=== PATIENT | female | born 1990 ===

== ENCOUNTER 2016-10-22 15:20 | Emergency (ER) | payer OTHER ==
[2016-09-25 15:59] VITALS: BMI 35.2
--- NOTE | 2016-10-22 16:24 | OBDCSUM ---
Datetime: 10/22/2016 16:17 Discharged to, Provider: Home Follow up at, Provider: Primary OB Disch Instr Activity: Normal activity Disch Instr Diet: Regular Discharge Instructions, Provider: Routine instructions given Discharge Diagnosis, Provider: False Labor - Undelivered Discharge Time: 10/22/2016 16:30 Follow up in weeks, Provider: As scheduled tmrw Disch Referrals: None Contraception discussed, Prov: No
--- NOTE | 2016-10-25 16:34 | OBHP ---
Datetime: 10/22/2016 16:00 IP Adm Impression: Term, intrauterine IP Admit Plan: Observation/Evaluation Admit Comment, IP Provider: IUP at term c/o CTX since 4am...q5m...no SROM. +FM. No VB EDC Apr 3 PNC: Dr Daron Beck CP documented and chart rev'd A: IUP at term not in labor P: discussed with Dr APPIAH...will discharge home; follow up this week labor instructions pre-eclampsia warning Extremities - PN: Normal Abdomen - PN: Normal Back - PN: Normal Lungs - PN: Normal Heart - PN: Normal Thyroid - PN: Normal Neurologic - PN: Normal HEENT - PN: Normal General - PN: Normal Presentation-Admit: Vertex IP Fetus A Comments: Ceph on sonogram; NST reactive FHR - Baseline A Provider: 140 Membranes, Provider: Intact Comments, ACOG Physical Exam: ROS: General - no fatigue HEENT: No JEAN; no visual disturbance CV: no CP; no palpitations RESP: No Cough; no SOB GI: No N/V/D : No F/U/D MS: no joint pain Pool Provider: Negative IP Hx Assessment: The History has been Reviewed and is Current EGA AdmitDate IP: 38.1 IP Chief Complaint: Uterine contractions NICHD Variability Prov Fetus A: Moderate 6-25bpm NICHD Accel Fetus A IP Provider: 15X15 FHR Category Provider Fetus A: Category I NICHD Decel Fetus A IP Provider: None Dilatation, Provider: FT Effacement, Provider: 0 Station, Provider: high Genitourinary Exam: Normal DTRs - PN: Normal
== END 2016-10-22 16:30 | disposition home or self-care (01) ==
LOC: H.EROB2 15:20
DX: O47.1 False labor at or after 37 completed weeks of gestation (principal); Z3A.38 38 weeks gestation of pregnancy

== ENCOUNTER 2016-11-02 11:15 | Emergency (ER) | payer OTHER ==
--- NOTE | 2016-11-02 13:15 | OBHP ---
Datetime: 11/02/2016 13:11 IP Adm Impression: Term, intrauterine IP Admit Plan: Observation/Evaluation; Discharge home Admit Comment, IP Provider: Patient is a @ 39.5 wks with vaginal bleeding, +FM, some contrac tions, previous , no antepartum issues, no medical problems, no surgeries, no allergies, taking p renatal vitamins VE=1/thick/high [id number] mod an, +accels, no decels TOCO = ctxning q 8-10 mins A/P 1. Patient is a rule out labor, ruled out. On exam patient is 1cm, no vaginal bleeding noted 2. NST reactive and reassuring 3. Patient to be discharged home, labor precautions given Pelvic Type - PN: Adequate Extremities - PN: Normal Abdomen - PN: Normal Back - PN: Normal Breast - PN: Normal Lungs - PN: Normal Heart - PN: Normal Thyroid - PN: Normal Neurologic - PN: Normal HEENT - PN: Normal General - PN: Normal FHR - Baseline A Provider: 140 Contraction Comments Provider: q 8-10 EGA AdmitDate IP: 39.5 Vital Signs Provider: Reviewed; Within Normal Limits IP Chief Complaint: Uterine contractions NICHD Variability Prov Fetus A: Moderate 6-25bpm NICHD Accel Fetus A IP Provider: 15X15 Dilatation, Provider: 1 Effacement, Provider: thick Station, Provider: high Genitourinary Exam: Normal DTRs - PN: Normal
--- NOTE | 2016-11-02 13:17 | OBDCSUM ---
Datetime: 11/02/2016 13:14 Follow up at, Provider: OB Disch Instr Activity: Normal activity Disch Instr Diet: Regular Discharge Diagnosis, Provider: False Labor - Undelivered Follow up in weeks, Provider: this week Discharge Comment, Provider: Return to hospital if increased bleeding, ctxns, decreased FM
[2016-11-05] MEDS ORDERED: Oxytocin 30 units/LR 500ML 500 ML IV ONE (17:24)
== END 2016-11-02 23:00 | disposition home or self-care (01) ==
LOC: H.EROB2 11:15
DX: O47.1 False labor at or after 37 completed weeks of gestation (principal); Z3A.39 39 weeks gestation of pregnancy

== ENCOUNTER 2016-11-05 12:40 | Inpatient (IN) | payer OTHER ==
[2016-11-05 13:34] VITALS: BMI 34.4
[2016-11-05] MEDS: Lactated Ringer's 1,000 ML IV SCH ×4 (13:45→18:30)
[2016-11-05 14:06] LABS: HEMATOCRIT 32.7 % (34.0-47.0); MEAN CORPUSCULAR HEMOGLOBIN 24.5 pg (27.0-31.0); RED CELL DISTRIBUTION WIDTH 20.5 % (11.5-14.5); WHITE BLOOD COUNT 16.1 K/uL (4.8-10.8)
[2016-11-05 14:11] LABS: MEAN CELL VOLUME 74.3 fl (81.0-99.0)
--- NOTE | 2016-11-05 16:41 | OBADHP ---
Datetime: 11/05/2016 16:35 IP Adm Impression Other: decreased fm early labor Admit Comment, IP Provider: GBS neg. Will admit and augument Extremities - PN: Normal Abdomen - PN: Abnormal Breast - PN: Normal Lungs - PN: Normal Heart - PN: Normal Thyroid - PN: Normal Neurologic - PN: Normal HEENT - PN: Normal General - PN: Normal FHR - Baseline A Provider: 150's Membranes, Provider: Intact Contraction Comments Provider: 2-5 min Comments, ACOG Physical Exam: Abd soft not tender but gravid, fundus at term, ext no calf tenderness Gestation - Est Wks by US: 40+ IP Hx Assessment: The History has been Reviewed and is Current IP Chief Complaint: Uterine contractions; Decreased movement NICHD Variability Prov Fetus A: Minimal - Undetectable to <5bpm NICHD Accel Fetus A IP Provider: 10X10 NICHD Decel Fetus A IP Provider: None Dilatation, Provider: 2cm Effacement, Provider: 75% Genitourinary Exam: Normal DTRs - PN: Normal EGA AdmitDate IP: 40.1 IP Adm Impression: Term, intrauterine IP Admit Plan: Admit to unit; Initiate labor protocol Datetime: 11/02/2016 13:11 Pelvic Type - PN: Adequate Back - PN: Normal Vital Signs Provider: Reviewed; Within Normal Limits Station, Provider: high Datetime: 10/22/2016 16:00 Presentation-Admit: Vertex IP Fetus A Comments: Ceph on sonogram; NST reactive Pool Provider: Negative FHR Category Provider Fetus A: Category I Datetime: 09/25/2016 15:27 Weight - Estimated: 5
[2016-11-05] MEDS ORDERED: Oxytocin 30 units/LR 500ML 500 ML IV ONE ×2 (16:50→18:00)
[2016-11-05] MEDS ORDERED: Fentanyl/Bupivacaine HCl 250 ML EPI ONE (17:21)
[2016-11-05 19:37] VITALS: BP 134/75; PULSE 96; RESP 18; TEMP 98.1; O2SAT 100
[2016-11-06] MEDS: Lactated Ringer's 1,000 ML IV SCH (01:29)
--- NOTE | 2016-11-06 06:21 | OBDS ---
MATERNAL INFORMATION Estimated Blood Loss (ml): 250cc Maternal Complications: None Provider Comments: Dellivered a living baby Girl, appears term cried spontaneously, Af light meconiu m, Cord around left foot x1 and around right foot x2, Placenta complete and intact, Small perineal l aceration repaired as above, no complication, rectal done and no defect. Tolerated procedure well, ut erus contracted well. LABOR SUMMARY EDC: 11/04/2016 00:00 No. Babies in Womb: 1 LABOR INFORMATION Reason for Induction Other: n/a Onset of Labor: 11/05/2016 19:48 Complete Dilatation: 11/06/2016 03:37 Group B Beta Strep: Negative Steroids Given: None Reason Steroids Not Administered: Not Applicable Other Reason Not Administered: n/a MEMBRANES Membranes Rupture Method: Spontaneous Rupture of Membranes: 11/06/2016 03:37 Amniotic Fluid Color: Light Meconium Amniotic Fluid Amount: Moderate Amniotic Fluid Odor: Normal STAGES OF LABOR Stage 1 hrs: 7 Stage 1 min: 49 VAGINAL DELIVERY Episiotomy: None Laceration Extension: First Degree Laceration Type: Perineal Laceration Repair Note: small tear in perineum repaired with 2-O chromic x2 in fig of 8 mannner No complications Sponge Count Correct: Yes Sharps Count Correct: Yes Count Comment: count correct CSECTION DELIVERY Primary Indication: N/A Secondary Indication: N/A CSection Incision: N/A IDENTIFICATION/MEDS BABY A ID Band Number: [id number]
[2016-11-06] MEDS ORDERED: Oxycodone/Acetaminophen 5/325 mg Tab PO PRN ×2 (06:22→09:12)
[2016-11-07 07:35] LABS: HEMATOCRIT 30.7 % (34.0-47.0); MEAN CELL VOLUME 75.3 fl (81.0-99.0); MEAN CORPUSCULAR HEMOGLOBIN 24.6 pg (27.0-31.0); MEAN CORPUSCULAR HGB CONC 32.7 g/dL (33.0-37.0); RED CELL DISTRIBUTION WIDTH 20.6 % (11.5-14.5); WHITE BLOOD COUNT 14.5 K/uL (4.8-10.8)
--- NOTE | 2016-11-07 08:00 | OBPPN ---
Datetime: 11/07/2016 07:55 PP Pain Prov: Within normal limits PP Pain Prov comment: No SOB, chest pains or leg pain PP Nausea Prov: Denies PP Flatus Prov: Yes PP Nausea Prov comment: Voiding well PP Breasts Prov: Normal PP Lungs Prov: Normal PP Abdomen/Uterus Prov: Abnormal PP Lochia Prov: Normal PP Vulva/Perineum Prov: Abnormal PP CVA Tenderness Prov: Normal PP Extremities Prov: Normal PP C/S Incision Prov: Not Applicable PP Progress Prov: Normal PP Comments Phys Exam Prov: abd soft ND NT, fundus below the umb NT and firm Ext no calf tenderness PP Impression Prov: Normal progression PP Plan Prov: Continue present management PP Progress Note Prov: OOB and ambulation Continue PP care and pending CBC this am IP PP Procedures: None Vital Signs Provider PP: Reviewed
--- NOTE | 2016-11-08 09:23 | OBPPN ---
Datetime: 11/08/2016 09:18 PP Pain Prov: Within normal limits PP Pain Prov comment: No SOB, chest or leg pain PP Nausea Prov: Denies PP Flatus Prov: Yes PP Nausea Prov comment: voiding wekk PP Flatus Prov comment: No C/F PP Breasts Prov: Normal PP Lungs Prov: Normal PP Abdomen/Uterus Prov: Abnormal PP Lochia Prov: Normal PP Vulva/Perineum Prov: Abnormal PP CVA Tenderness Prov: Normal PP Extremities Prov: Normal PP C/S Incision Prov: Not Applicable PP Progress Prov: Normal PP Comments Phys Exam Prov: Abd soft ND fundus firm below the umb. NT, perineum repaired Ext no calf tenderness PP Impression Prov: Normal progression PP Plan Prov: Discharge PP Progress Note Prov: D/C home with instructiions IP PP Procedures: None Vital Signs Provider PP: Reviewed
--- NOTE | 2016-11-08 09:25 | OBDCSUM ---
Datetime: 11/08/2016 09:22 Discharged to, Provider: Home Follow up at, Provider: Dr Beck Disch Instr Activity: Bedrest; May be up to bathroom; May be up for meals; May Shower Disch Instr Diet: Regular Discharge Instructions, Provider: Routine instructions given Discharge Diagnosis, Provider: Term Delivered Discharge Time: 11/08/2016 09:22 Follow up in weeks, Provider: 4-6 wks Contraception discussed, Prov: Yes Disch Activity Restrictions: No exercising; No lifting; No driving; Minimize walking; Minimize stair -climbing; No sexual activity; Nothing in vagina - [place], tampons, douche Discharge Comment, Provider: continue PNC vit and iron Contraception after Delivery: Undecided
== END 2016-11-08 13:40 | disposition home or self-care (01) | DRG 372 ==
LOC: H.EROB2 12:40 → H.L&D 13:34 → H.OB/GYN 11-06 08:40
PROVIDERS: ADMIT Specialist; ATTEND Specialist
PROC: 4A1HXCZ Monitoring of Products of Conception, Cardiac Rate, External Approach (ICD-10-PCS; 2016-11-05)
PROC: 10E0XZZ Delivery of Products of Conception, External Approach (ICD-10-PCS; principal; 2016-11-06)
PROC: 0HQ9XZZ Repair Perineum Skin, External Approach (ICD-10-PCS; 2016-11-06)
DX: O36.8130 Decreased fetal movements, third trimester, not applicable or unspecified (principal); O10.92 Unspecified pre-existing hypertension complicating childbirth; O77.0 Labor and delivery complicated by meconium in amniotic fluid; O70.0 First degree perineal laceration during delivery; Z37.0 Single live birth; Z3A.40 40 weeks gestation of pregnancy

== ENCOUNTER 2018-08-23 06:18 | Emergency (ER) | payer OTHER ==
[2018-08-23 06:19] VITALS: BMI 34.4
--- NOTE | 2018-08-23 07:17 | ED PDOC ---
Upper Extremity Pain/Injury Time Seen by Provider: 08/23/18 07:03 Chief Complaint (Nursing): Finger,Hand,&Wrist Chief Complaint (Provider): right wrist pain History Per: Patient History/Exam Limitations: no limitations Onset/Duration Of Symptoms: Hrs (x2) Current Symptoms Are (Timing): Still Present Additional Complaint(s): Jose A Dickinson is a 27 year old female, with no significant past medical history, who presents to the emergency department complaining of right wrist pain onset for x2 hours. Patient reports she was in bed sleeping with her daughter when the ceiling tiles came down on them. Patient states the ceiling hit her right side but is only complaining of pain to the right wrist. Patient denies any head injury, LOC or other possible injuries. No further medical complaints. PMD: Sudheer Nair Past Medical History Reviewed: Historical Data, Nursing Documentation, Vital Signs Vital Signs: Last Vital Signs Temp 97.9 F 08/23/18 06:34 Pulse 79 08/23/18 06:34 Resp 16 08/23/18 06:34 BP 122/76 08/23/18 06:34 Pulse Ox 99 08/23/18 06:34 - Medical History PMH: Gastritis Denies: Chronic Kidney Disease - Surgical History Surgical History: Appendectomy (when she was 4 years old) - Family History Family History: States: Unknown Family Hx - Social History Current smoker - smoking cessation education provided: No Alcohol: None Drugs: Denies - Immunization History Hx Tetanus Toxoid Vaccination: No Hx Influenza Vaccination: No Hx Pneumococcal Vaccination: Yes (05/2015) - Home Medications Home Medications: Ambulatory Orders Medication Instructions Recorded Multivit/Folic Acid/I 1 tab PO DAILY #30 tab 02/29/16 [ Plus] Ferrous Sulfate/Vit C/Folic AC 1 tab-cap PO BID 11/05/16 [Folitab 500 Caplet] valACYclovir [Valtrex] 1 tab PO DAILY 11/05/16 - Allergies Allergies/Adverse Reactions: Allergies Allergy/AdvReac Type Severity Reaction Status Date / Time No Known Allergies Allergy Verified 08/23/18 06:35 Review of Systems ROS Statement: Except As Marked, All Systems Reviewed And Found Negative Musculoskeletal: Positive for: Arm Pain (right wrist pain) Physical Exam - Reviewed Nursing Documentation Reviewed: Yes Vital Signs Reviewed: Yes - Physical Exam Appears: Positive for: No Acute Distress Head Exam: Positive for: ATRAUMATIC, NORMAL INSPECTION, NORMOCEPHALIC Skin: Positive for: Normal Color, Warm, Dry Eye Exam: Positive for: Normal appearance, EOMI, PERRL Neck: Positive for: Normal, Painless ROM, Supple Extremity: Positive for: Normal ROM (full ROM of wrist), Tenderness (Tenderness to dorsum of right wrist. ). Negative for: Deformity (right wrist), Swelling (right wrist), Other (snuffbox tenderness) Neurologic/Psych: Positive for: Alert, Oriented. Negative for: Motor/Sensory Deficits - ECG O2 Sat by Pulse Oximetry: 99 (RA) Pulse Ox Interpretation: Normal Medical Decision Making Medical Decision Making: Time: 07:03 Initial Impression: Right wrist injury r/o fracture Initial plan: --Wrist, right 3 views [RAD] --Reevaluation 08:15 Wrist x-ray is unremarkable, shows no acute findings. Scribe Attestation: Documented by Reddy Dos Santos, acting as a scribe for Paty Salcedo MD Provider Scribe Attestation: All medical record entries made by the Scribe were at my direction and personally dictated by me. I have reviewed the chart and agree that the record accurately reflects my personal performance of the history, physical exam, medical decision making, and the department course for this patient. I have also personally directed, reviewed, and agree with the discharge instructions and disposition. Disposition - Clinical Impression Clinical Impression: Wrist injury - Patient ED Disposition Is Patient to be Admitted: No Doctor Will See Patient In The: Office Counseled Patient/Family Regarding: Studies Performed, Diagnosis, Need For Followup - Disposition Referrals: Sudheer Nair MD [Family Provider] - Disposition: Routine/Home Disposition Time: 09:40 Condition: GOOD Additional Instructions: JOSE A DICKINSON, thank you for letting us take care of you today. Your provider was Paty Salcedo MD and you were treated for RT ARM PAIN. The emergency medical care you received today was directed at your acute symptoms. If you were prescribed any medication, please fill it and take as directed. It may take several days for your symptoms to resolve. Return to the Emergency Department if your symptoms worsen, do not improve, or if you have any other problems. Please contact your doctor or call one of the physicians/clinics you have been referred to that are listed on the Patient Visit Information form that is included in your discharge packet. Bring any paperwork you were given at discharge with you along with any medications you are taking to your follow up visit. Our treatment cannot replace ongoing medical care by a primary care provider outside of the emergency department. Thank you for allowing the [facility] team to be part of your care today. If you had an X-Ray or CT scan: A Radiologist will review the ED reading if any change in treatment is needed we will contact you. If you had a blood, urine, or wound culture: It will take several days for the results, if any change in treatment is needed we will contact you. If you had an STI test: It will take 48 hours for the results. Please call after 1 week if you have not heard back. Instructions: Common Wrist Injuries
[2018-08-23 10:01] VITALS: BP 129/76; PULSE 82; RESP 18; TEMP 98.2; O2SAT 100
--- NOTE | 2018-08-23 11:13 | RAD ---
Date of service: 08/23/2018 PROCEDURE: Right Wrist Radiographs. HISTORY: right wrist pain injury COMPARISON: None. FINDINGS: BONES: No acute fracture. JOINTS: Unremarkable. SOFT TISSUES: Normal. OTHER FINDINGS: None. IMPRESSION: No demonstrated fracture or dislocation.
== END 2018-08-23 09:50 | disposition home or self-care (01) ==
LOC: H.ER 06:18
DX: S69.91XA Unspecified injury of right wrist, hand and finger(s), initial encounter (principal); W20.8XXA Other cause of strike by thrown, projected or falling object, initial encounter